=== PATIENT | female | born 1970 | race Caucasian/White ===

== ENCOUNTER 2017-10-16 11:00 | Emergency (ER) | payer OTHER ==
[~2017-10-16] VITALS: Ht 160 cm; Wt 72.6 kg
[~2017-10-16 11:00] MED LIST: ACET325 PO; ALBIPROI INH; ALBU.083IS; ALBU.083IS IH; ALBU3IS INH; ALBU90I INH; ALBU90OI INH; AMIT50; AMIT50 PO; AMIT75; AMOCLA500 PO; AMOX500 PO; ASPI81EC; AZIT250 PO; Augmentin 875-1 EACH PO; CIME300 PO; CIPR500 PO; CODACE30 PO; CODGUAEL PO; CRUTCH4 USE; CYCL10 PO; Cleocin HCl300 MG PO; Crutch1 EACH MISC; DEXA4; DEXA6; DIPH50 PO; DIVA125 PO; DIVA125EC PO; DOXY100; DOXY100 PO; EPIN.3I IM; Esgic Tablet1 EACH PO; FAMO20 PO; FAMO40 PO; FLUSAL115 IH; FLUSAL2505 IH; HYDACE10B PO; HYDACE5 PO; HYDR1TAB94 PO; IBUP600 PO; IBUP800 PO; IPRA.03NI; IPRAIS NEB; LIDO2L MM; LORA10ER PO; METPRE4DP PO; METR500; MUPI2TC TOP; Mobic15 MG PO; Mobic7.5 MG PO; NAPR500 PO; NAPR550 PO; NEOPOLHYDS OT; NORETHTP; Norco 5-325 Ta1 EACH PO; ONDA4ODT MM; OXYACE5T PO; OXYACE7.5T PO; PARO10; PARO20; PARO20 PO; PRED20 PO; PROACE100 PO; PROC10 PO; PROM25 PO; RABE20; RANI150; RANI150 PO; RXCODACET PO; RXCYCL10 PO; RXHYDACE PO; RXOXYACE PO; TERC.8TC PV; TRAM50 PO; TRAZ100; Ultram50 MG PO; Veetids 500500 MG PO; Ventolin Soln3 ML INH; Zovirax800 MG PO; [UNRECOGNIZED DRUG - CODE]; [UNRECOGNIZED DRUG - CODE] IH; [UNRECOGNIZED DRUG - CODE] INH
[2017-10-16] MEDS ORDERED: ACET325 PO (12:14)
== END 2017-10-16 12:28 | disposition home or self-care (01) ==
LOC: ER 11:00
DX: S80.02XA Contusion of left knee, initial encounter (principal); J45.909 Unspecified asthma, uncomplicated; Z88.8 Allergy status to other drugs, medicaments and biological substances; Z88.1 Allergy status to other antibiotic agents; Z88.2 Allergy status to sulfonamides; W50.1XXA Accidental kick by another person, initial encounter
CPT/HCPCS: 29505; 73562-LT; 99283

== ENCOUNTER 2017-11-17 10:17 | Emergency (ER) | payer OTHER ==
[~2017-11-17] VITALS: Ht 160 cm; Wt 74.8 kg
== END 2017-11-17 11:13 | disposition home or self-care (01) ==
LOC: ER 10:17
DX: S60.221A Contusion of right hand, initial encounter (principal); Z88.8 Allergy status to other drugs, medicaments and biological substances; Z88.2 Allergy status to sulfonamides; Z88.1 Allergy status to other antibiotic agents; Z79.899 Other long term (current) drug therapy; J45.909 Unspecified asthma, uncomplicated; Y04.8XXA Assault by other bodily force, initial encounter
CPT/HCPCS: 73130; 99283

== ENCOUNTER 2017-11-20 19:16 | Emergency (ER) | payer OTHER ==
[~2017-11-20] VITALS: Ht 160 cm; Wt 72.6 kg
[2017-11-20] MEDS ORDERED: IBUP800 PO (19:22)
[2017-11-20] MEDS ORDERED: Mobic15 MG PO (19:50)
== END 2017-11-20 20:08 | disposition home or self-care (01) ==
LOC: ER 19:16
DX: M25.562 Pain in left knee (principal); G89.29 Other chronic pain; J45.909 Unspecified asthma, uncomplicated; Z88.8 Allergy status to other drugs, medicaments and biological substances; Z88.1 Allergy status to other antibiotic agents; Z88.2 Allergy status to sulfonamides; Z88.6 Allergy status to analgesic agent; Z79.1 Long term (current) use of non-steroidal anti-inflammatories (NSAID)
CPT/HCPCS: 96372; 99283; J1885

== ENCOUNTER 2018-03-22 10:34 | Emergency (ER) | payer OTHER ==
[~2018-03-22] VITALS: Ht 160 cm; Wt 74.8 kg
== END 2018-03-22 11:40 | disposition left against medical advice (07) ==
LOC: ER 10:34
DX: Z53.21 Procedure and treatment not carried out due to patient leaving prior to being seen by health care provider (principal)

== ENCOUNTER 2018-10-14 16:43 | Emergency (ER) | payer OTHER ==
[~2018-10-14] VITALS: Ht 160 cm; Wt 73.5 kg
[2018-10-14] MEDS ORDERED: KETO10 PO (18:18)
[2018-10-14] MEDS ORDERED: Cyclobenzaprine5 MG PO (18:18)
== END 2018-10-14 18:28 | disposition home or self-care (01) ==
LOC: ER 16:43
DX: S62.636A Displaced fracture of distal phalanx of right little finger, initial encounter for closed fracture (principal); S16.1XXA Strain of muscle, fascia and tendon at neck level, initial encounter; S66.306A Unspecified injury of extensor muscle, fascia and tendon of right little finger at wrist and hand level, initial encounter; W18.30XA Fall on same level, unspecified, initial encounter; Z88.8 Allergy status to other drugs, medicaments and biological substances; Z88.2 Allergy status to sulfonamides; Z88.1 Allergy status to other antibiotic agents; Z79.899 Other long term (current) drug therapy; J45.909 Unspecified asthma, uncomplicated
CPT/HCPCS: 26755; 73110; 73140; 99283-25

== ENCOUNTER 2018-10-23 14:01 | Emergency (ER) | payer OTHER ==
[~2018-10-23] VITALS: Ht 160 cm; Wt 74.4 kg
[~2018-10-23 14:01] MED LIST changes: +Cyclobenzaprine5 MG PO; +KETO10 PO
[2018-10-23] MEDS ORDERED: Robaxin500 MG PO (15:11)
== END 2018-10-23 15:32 | disposition home or self-care (01) ==
LOC: ER 14:01
DX: M62.830 Muscle spasm of back (principal); Z88.8 Allergy status to other drugs, medicaments and biological substances; Z88.2 Allergy status to sulfonamides; Z88.1 Allergy status to other antibiotic agents; J45.909 Unspecified asthma, uncomplicated
CPT/HCPCS: 72040; 72070; 99283-25

== ENCOUNTER 2020-07-01 14:07 | Emergency (ER) | payer OTHER ==
[~2020-07-01] VITALS: Ht 160 cm; Wt 81.7 kg
[~2020-07-01 14:07] MED LIST changes: +ALBU90OI; +Acetaminophen-1 EAC1 PO; +Robaxin500 MG PO
[2020-07-01 15:08] LABS: BASOPHILS ABSOLUTE AUTO 0.05 K/mm3 (0.00-0.23); BASOPHILS PERCENT AUTO 1 % (0-2); EOSINOPHILS PERCENT AUTO 11 % (0-6); Hematocrit 47.8 % (33.0-51.0); Hemoglobin 15.3 g/dL (11.5-16.0); IMMATURE GRAN ABSOLUTE AUTO 0.02 K/mm3 (0.00-0.10); IMMATURE GRAN PERCENT AUTO 0 % (0-1); LYMPHOCYTES ABSOLUTE AUTO 1.32 K/mm3 (0.84-5.20); LYMPHOCYTES PERCENT AUTO 18 % (21-46); MONOCYTES ABSOLUTE AUTO 0.53 K/mm3 (0.16-1.47); MONOCYTES PERCENT AUTO 7 % (4-13); Mean Corpuscular HGB 27.5 pg (26.0-34.0); Mean Corpuscular Volume 86 fL (80-100); Mean Platelet Volume 9.3 fL (9.1-12.4); NEUTROPHILS PERCENT AUTO 63 % (41-73); Platelet Count 320 K/mm3 (150-400); RDW Coefficient Variation 12.5 % (11.7-14.2); RDW Standard Deviation 39.5 fL (35.1-46.3); Red Blood Cell Count 5.56 M/mm3 (3.80-5.20); White Blood Cell Count 7.42 K/mm3 (4.00-11.30)
[2020-07-01 15:34] LABS: Alanine Aminotransfer (ALT/SGP 117 U/L (12-78); Albumin, Blood 3.7 g/dL (3.4-5.0); Albumin/Globulin Ratio 0.8 (0.8-1.8); Alk Phos 76 U/L (50-136); Anion Gap 5 mmol/L (6-16); Aspartate Aminotrans (AST/SGOT 93 U/L (12-37); Blood Urea Nitrogen 15 mg/dL (8-24); Bun/Creatinine Ratio 23.6 (12.0-20.0); CO2, Blood 25 mmol/L (21-32); Calcium, Blood 9.9 mg/dL (8.5-10.1); Chloride, Blood 112 mmol/L (98-108); Creatinine, Blood 0.64 mg/dL (0.40-1.00); Globulin, Blood 4.6 g/dL (2.2-4.0); Glomerular Filtration Rate >60 (60-); Glucose, Blood 93 mg/dL (70-99); Magnesium, Blood 2.5 mg/dL (1.6-2.4); Potassium, Blood 4.4 mmol/L (3.5-5.5); Sodium, Blood 142 mmol/L (136-145); Total Protein, Blood 8.3 g/dL (6.4-8.2); Troponin I <0.015 ng/mL (0.000-0.040)
[2020-07-01 18:04] LABS: Adenovirus Not Detected (NOT DETECT); Bordetella pertussis Not Detected (NOT DETECT); Chlamydophila pneumoniae Not Detected (NOT DETECT); Coronavirus 229E Not Detected (NOT DETECT); Coronavirus HKU1 Not Detected (NOT DETECT); Coronavirus NL63 Not Detected (NOT DETECT); Coronavirus OC43 Not Detected (NOT DETECT); Human Metapneumovirus Not Detected (NOT DETECT); Human Rhinovirus/Enterovirus Not Detected (NOT DETECT); Influenza A/2009-H1 Not Detected (NOT DETECT); Influenza A/H1 Not Detected (NOT DETECT); Influenza A/H3 Not Detected (NOT DETECT); Influenza B Not Detected (NOT DETECT); Mycoplasma pneumoniae Not Detected (NOT DETECT); Parainfluenza Virus 1 Not Detected (NOT DETECT); Parainfluenza Virus 2 Not Detected (NOT DETECT); Parainfluenza Virus 3 Not Detected (NOT DETECT); Parainfluenza Virus 4 Not Detected (NOT DETECT); Respiratory Syncytial Virus Not Detected (NOT DETECT); SARS-Cov-2 (COVID-19), BioFire Not Detected (NOT DETECT)
[2020-07-01] MEDS ORDERED: Prednisone20 MG PO (18:09)
== END 2020-07-01 18:25 | disposition home or self-care (01) ==
LOC: ER 14:07
PROVIDERS: Emergency Medicine
DX: J45.901 Unspecified asthma with (acute) exacerbation (principal); F41.9 Anxiety disorder, unspecified; Z88.2 Allergy status to sulfonamides; Z88.6 Allergy status to analgesic agent; Z88.1 Allergy status to other antibiotic agents; Z88.8 Allergy status to other drugs, medicaments and biological substances; Z88.4 Allergy status to anesthetic agent; Z79.899 Other long term (current) drug therapy
CPT/HCPCS: 0202U; 36415; 71045; 80053; 83735; 83880; 84484; 85025; 93005; 93010; 99285-25; J7512

== ENCOUNTER 2021-03-29 22:34 | Emergency (ER) | payer OTHER ==
[~2021-03-29 22:34] MED LIST changes: +Prednisone20 MG PO
== END 2021-03-29 22:55 | disposition left against medical advice (07) ==
LOC: ER 22:34
DX: Z53.21 Procedure and treatment not carried out due to patient leaving prior to being seen by health care provider (principal)

== ENCOUNTER → 2021-03-30 | Outpatient (CLI) | payer OTHER ==
[~2021-03-30] MED LIST changes: +AMLODIPINE BES2.5 MG PO; +FLUTICASONE-SA1 EAC8 IH; +IPRAT-ALBUT 0.5-3 ML INH
[2021-04-03 07:11] LABS: CHLAMYDIA BY NAA Negative (Negative); GONOCOCCUS BY NAA Negative (Negative); TRICH VAG BY NAA Negative (Negative)
== END | disposition home or self-care (01) ==
LOC: LAB 15:06 → LAB SHORT 15:06
PROVIDERS: Physician Assistant Medical
DX: Z12.4 Encounter for screening for malignant neoplasm of cervix (principal); N76.0 Acute vaginitis
CPT/HCPCS: 87070; 87205; 87491; 87591; 87661; G0145

== ENCOUNTER 2021-03-31 16:27 | Emergency (ER) | payer OTHER ==
[~2021-03-31] VITALS: Ht 160 cm; Wt 81.7 kg
[~2021-03-31 16:27] MED LIST changes: -AMLODIPINE BES2.5 MG PO; -FLUTICASONE-SA1 EAC8 IH; -IPRAT-ALBUT 0.5-3 ML INH
[2021-03-31] MEDS ORDERED: AMLODIPINE BES2.5 MG PO (16:33)
[2021-03-31] MEDS ORDERED: FLUTICASONE-SA1 EAC8 IH (16:33)
[2021-03-31] MEDS ORDERED: IPRAT-ALBUT 0.5-3 ML INH (16:33)
[2021-03-31] MEDS ORDERED: Norco 5-325 Ta1 EACH PO (17:20)
== END 2021-03-31 17:31 | disposition home or self-care (01) ==
LOC: ER 16:27
DX: S93.402A Sprain of unspecified ligament of left ankle, initial encounter (principal)
CPT/HCPCS: 73610; 94640; 99283-25; L1906

== ENCOUNTER 2021-08-18 15:03 | Emergency (ER) | payer OTHER ==
[~2021-08-18] VITALS: Ht 160 cm; Wt 81.7 kg
[~2021-08-18 15:03] MED LIST changes: +AMLODIPINE BES2.5 MG PO; +FLUTICASONE-SA1 EAC8 IH; +IPRAT-ALBUT 0.5-3 ML INH
[2021-08-18 16:00] LABS: BASOPHILS ABSOLUTE AUTO 0.07 K/mm3 (0.00-0.23); BASOPHILS PERCENT AUTO 1 % (0-2); EOSINOPHILS ABSOLUTE AUTO 0.39 K/mm3 (0.00-0.68); EOSINOPHILS PERCENT AUTO 6 % (0-6); Hematocrit 44.4 % (33.0-51.0); Hemoglobin 14.8 g/dL (11.5-16.0); IMMATURE GRAN ABSOLUTE AUTO 0.06 K/mm3 (0.00-0.10); IMMATURE GRAN PERCENT AUTO 1 % (0-1); LYMPHOCYTES ABSOLUTE AUTO 1.37 K/mm3 (0.84-5.20); LYMPHOCYTES PERCENT AUTO 21 % (21-46); MONOCYTES ABSOLUTE AUTO 0.66 K/mm3 (0.16-1.47); MONOCYTES PERCENT AUTO 10 % (4-13); Mean Corpuscular HGB 27.6 pg (26.0-34.0); Mean Corpuscular HGB Conc 33.3 g/dL (31.5-36.5); Mean Corpuscular Volume 83 fL (80-100); NEUTROPHILS ABSOLUTE AUTO 3.89 K/mm3 (1.96-9.15); NEUTROPHILS PERCENT AUTO 60 % (41-73); RDW Coefficient Variation 12.7 % (11.7-14.2); RDW Standard Deviation 38.5 fL (35.1-46.3); Red Blood Cell Count 5.36 M/mm3 (3.80-5.20); White Blood Cell Count 6.44 K/mm3 (4.00-11.30)
[2021-08-18 16:15] LABS: Mean Platelet Volume 9.8 fL (9.1-12.4)
[2021-08-18 16:22] LABS: Alanine Aminotransfer (ALT/SGP 19 U/L (12-78); Albumin, Blood 2.8 g/dL (3.4-5.0); Albumin/Globulin Ratio 0.6 (0.8-1.8); Alk Phos 75 U/L (50-136); Anion Gap 7 mmol/L (6-16); Aspartate Aminotrans (AST/SGOT 21 U/L (12-37); Bilirubin, Total 0.6 mg/dL (0.1-1.0); Blood Urea Nitrogen 12 mg/dL (8-24); Bun/Creatinine Ratio 15.2 (12.0-20.0); CO2, Blood 23 mmol/L (21-32); Calcium, Blood 9.2 mg/dL (8.5-10.1); Chloride, Blood 111 mmol/L (98-108); Creatinine, Blood 0.79 mg/dL (0.40-1.00); Globulin, Blood 4.9 g/dL (2.2-4.0); Glomerular Filtration Rate >60 (60-); Glucose, Blood 131 mg/dL (70-99); Potassium, Blood 4.2 mmol/L (3.5-5.5); Sodium, Blood 141 mmol/L (136-145); Total Protein, Blood 7.7 g/dL (6.4-8.2); Troponin I <0.015 ng/mL (0.000-0.040)
== END 2021-08-18 17:36 | disposition home or self-care (01) ==
LOC: ER 15:03
PROVIDERS: Physician Assistant
DX: F41.9 Anxiety disorder, unspecified (principal); N93.9 Abnormal uterine and vaginal bleeding, unspecified
CPT/HCPCS: 36415; 71046; 80053; 83690; 84484; 85025; 93005; 93010; 99285-25

== ENCOUNTER 2025-08-05 19:39 | Emergency (ER) | payer OTHER ==
[~2025-08-05] VITALS: Ht 160 cm; Wt 81.7 kg
[2025-08-05 20:00] VITALS: BP 168/104
[2025-08-06] MEDS ORDERED: ACET500 PO (00:07)
[2025-08-06] MEDS ORDERED: IBUP600 PO (00:07)
== END 2025-08-06 00:10 | disposition home or self-care (01) ==
LOC: ER 19:39
DX: M79.642 Pain in left hand (principal); M79.641 Pain in right hand
CPT/HCPCS: 73130; 99283-25; A9270